=== PATIENT | female | born 1965 | race Caucasian/White ===

== ENCOUNTER → 2016-07-17 | Outpatient (CLI) | payer OTHER ==
--- OUTSIDE RECORDS SUMMARY | 2016-07-17 11:06 | XMS REPORT | Continuity of Care Document ---
Author Author [facility] Organization [facility] Address Unknown Phone Unavailable Care Team Providers Care Battalion Chief Name Role Phone Mario Yun PCP [phone] Source Comments Some departments are not documenting in the electronic medical record. If you do not see the information that you expected, contact Release of Information in the Health Information Management department at [phone] for further assistance in locating additional records.[facility] Active Allergies and Adverse Reactions No Known Allergies Current Medications No known medications Active Problems Problem Noted Date Cancer of the skin, basal cell 03/31/2009 History of malignant melanoma of skin 03/31/2009 Cervical cancer (HCC) 03/31/2009 Overview: DIAGNOSIS: Stage IA2 Adenocarcinoma of the cervix PRIOR THERAPY: Status post laparoscopic radical hysterectomy, pelvic/common iliac LND, washings on 04/28/09. On final pathology: no residual disease. All 25 LNs were negative for disease. CURRENT THERAPY: Observation. To follow up with Dr. Yun in 3 months. She will require an examination every 3 months for 2 years then q 4 months, then q 6 months for 2 years, then yearly. CT at the end of the first and second year, and PRN. Abnormal mammogram, unspecified 03/31/2009 Social History Tobacco Use Types Packs/Day Years Used Date Current Every Day Smoker Cigarettes 0.5 20 Alcohol Use Drinks/Week oz/Week Comments Yes 6 Cans of 72.0 beer Last Filed Vital Signs Vital Sign Reading Time Taken Blood Pressure 121/91 05/31/2009 11:23 AM DEPUTY CHIEF COUNSEL Pulse 91 05/31/2009 11:23 AM DEPUTY CHIEF COUNSEL Temperature 36.5 C (97.7 F) 09/06/2009 10:22 AM CDT Respiratory Rate - - Height 1.721 m (5' 7.75") 09/06/2009 10:22 AM CDT Weight 87.726 kg (193 lb 6.4 oz) 09/06/2009 10:22 AM CDT Body Mass Index 29.62 09/06/2009 10:22 AM CDT Oxygen Saturation 95% 04/30/2009 8:00 AM DEPUTY CHIEF COUNSEL Plan of Care Health Maintenance Due Date Last Done Comments Physical (Comprehensive) 1974 Exam Pertussis Vaccine 1978 Tetanus Vaccine 01/05/1984 Cervical Cancer Screening 01/05/1988 Breast Cancer Screening 2007 Influenza Vaccine 01/20/2016 Results from Last 3 Months Not on file
--- NOTE | 2016-07-19 20:08 | Diagnostic Imaging Report ---
Bilateral screening mammogram. The current study was also evaluated with a Computer Aided Detection (CAD) system. INDICATION: Screening. No current complaints stated on the questionnaire. COMPARISON: 07/08/2015. FINDINGS: The breasts are composed of heterogeneously dense parenchyma which may decrease mammographic sensitivity. There is a biopsy clip in the outer aspect of the left breast. Punctate calcifications are also seen. No mass, architectural distortion, or suspicious cluster of calcification noted. Allowing for technique and positional differences, no suspicious change is seen. IMPRESSION: No significant change. ACR BI-RADS Category 2: Benign findings. Result letter will be mailed to the patient. Note: At least 10% of breast cancer is not imaged by mammography. Dictated by: Dictated on workstation # [id number]
== END ==
LOC: RAD 11:03
PROVIDERS: ATTEND Internal Medicine
DX: Z12.31 Encounter for screening mammogram for malignant neoplasm of breast (principal)
CPT/HCPCS: 77067

== ENCOUNTER → 2017-07-02 | Outpatient (CLI) | payer OTHER ==
--- NOTE | 2017-07-02 19:30 | Diagnostic Imaging Report ---
INDICATION: Routine screening. Comparison is made with prior study from 07/17/2016. The current study was also evaluated with a Computer Aided Detection (CAD) system. Scattered fibroglandular densities are noted bilaterally. The overall parenchymal pattern appears to be stable. Intramammary lymph node upper outer right breast is stable. There is biopsy clip in the lateral left breast. Benign calcifications are present. No spiculated mass or malignant appearing microcalcifications are seen. The axillae are unremarkable. IMPRESSION: No mammographic features suspicious for malignancy are identified. ACR BI-RADS Category 2: Benign findings. Result letter will be mailed to the patient. Note: At least 10% of breast cancer is not imaged by mammography. Dictated by: Dictated on workstation # [id number]
== END ==
LOC: RAD 14:27
PROVIDERS: ATTEND Internal Medicine
DX: Z12.31 Encounter for screening mammogram for malignant neoplasm of breast (principal)
CPT/HCPCS: 77067

== ENCOUNTER → 2018-07-05 | Outpatient (CLI) | payer OTHER ==
--- NOTE | 2018-07-05 12:06 | Diagnostic Imaging Report ---
INDICATION: Routine screening. COMPARISON: 07/02/2017 and 07/17/2016. TECHNIQUE: 2D and 3D bilateral screening mammography was performed with CAD. FINDINGS: Scattered fibroglandular densities are identified bilaterally. The intraparenchymal lymph node in the upper outer right breast appears stable. A biopsy clip in the left breast is again seen. No new mass or malignant appearing microcalcifications are identified. The axillae are unremarkable. IMPRESSION: No mammographic features suspicious for malignancy are identified. ACR BI-RADS Category 2: Benign findings. Result letter will be mailed to the patient. Note: At least 10% of breast cancer is not imaged by mammography. Dictated by: Dictated on workstation # [id number]
== END ==
LOC: RAD 08:45
PROVIDERS: ATTEND Internal Medicine
DX: Z12.31 Encounter for screening mammogram for malignant neoplasm of breast (principal)
CPT/HCPCS: 77067

== ENCOUNTER 2019-07-07 05:38 | Outpatient (CLI) | payer OTHER ==
[~2019-07-07] VITALS: Ht 172 cm; Wt 94.0 kg
[2019-07-07] MEDS ORDERED: ETOD500T PO (14:05)
[2019-07-07] MEDS ORDERED: ALPR0.25 PO (14:05)
== END 2019-07-07 14:36 | disposition home or self-care (01) ==
LOC: PREOP 05:38
PROVIDERS: ATTEND Surgery
DX: Z01.818 Encounter for other preprocedural examination (principal)

== ENCOUNTER → 2019-07-07 | Outpatient (CLI) | payer OTHER ==
[~2019-07-07] MED LIST: ALPR0.25 PO; ETOD500T PO
--- NOTE | 2019-07-07 08:52 | Diagnostic Imaging Report ---
INDICATION: Screening. TECHNIQUE: The current study was also evaluated with a Computer Aided Detection (CAD) system. 3D Tomographic imaging was also performed. COMPARISON: 07/05/2018, 07/02/2017, and 07/17/2016. FINDINGS: There are scattered fibroglandular densities bilaterally. There are a few benign type calcifications. There is a surgical clip in the left breast. There is an unchanged benign-appearing nodular density in the lateral aspect of the right breast. There is no new dominant mass, spiculated lesion, or suspicious calcification identified. The skin, nipples, and axillae are unremarkable. IMPRESSION: Benign findings. ACR BI-RADS Category 2: Benign findings. Result letter will be mailed to the patient. Note: At least 10% of breast cancer is not imaged by mammography. Dictated by: Dictated on workstation # [id number]
== END ==
LOC: RAD 07:45
PROVIDERS: ATTEND Internal Medicine
DX: Z12.31 Encounter for screening mammogram for malignant neoplasm of breast (principal)
CPT/HCPCS: 77067

== ENCOUNTER 2019-07-14 09:09 | Day surgery (SDC) | payer OTHER ==
[~2019-07-14] VITALS: Ht 172 cm; Wt 94.0 kg
[2019-07-14] MEDS ORDERED: LACTATED RINGERS 1,000 ML IV ONE (09:16)
--- NOTE | 2019-07-14 09:21 | Progress Note-Pre Operative ---
Pre-Operative Progress Note H&P Reviewed The H&P was reviewed, patient examined and no changes noted. Time Seen by Provider: 09:19 Date H&P Reviewed: Jul 14, 2019 Time H&P Reviewed: 09:18 Pre-Operative Diagnosis: screening colonoscopy BHASKAR WIGGINS DO Jul 14, 2019 09:21
[2019-07-14 09:30] VITALS: BP 117/82
[2019-07-14] MEDS ORDERED: LACTATED RINGERS 1,000 ML IV STA (09:32)
[2019-07-14] MEDS ORDERED: PROPOFOL INJECTION 50 ML IV ONE (09:37)
[2019-07-14] MEDS ORDERED: MIDAZOLAM 2 MG/2 ML (VERSED) VIAL ONE (09:37)
[2019-07-14] MEDS ORDERED: GLYCOPYRROLATE 0.2 MG/ML (ROBINUL) 2 ML VIAL ONE (10:19)
[2019-07-14 10:35] VITALS: BP 113/65
[2019-07-14 10:40] VITALS: BP 114/68
--- NOTE | 2019-07-14 10:42 | Progress Note-Post Operative ---
Post-Operative Progess Note Surgeon (s)/Hris Specialist (s) Surgeon BHASKAR WIGGINS DO Hris Specialist: SENIA Vergara Pre-Operative Diagnosis screening colonoscopy Post-Operative Diagnosis Internal Hemorrhoids Procedure & Operative Findings Date of Procedure 07/14/19 Procedure Performed/Findings Colonoscopy Anesthesia Type IV sedation by MANUFACTURING WEAVER Estimated Blood Loss Estimated blood loss (mL): none Specimens/Packing Specimens Removed none BHASKAR WIGGISN DO Jul 14, 2019 10:42
--- NOTE | 2019-07-14 10:42 | Endoscopy Discharge Instruct ---
Endo Procedure/Findings Findings 1.: Internal Hemorrhoids Discharge Instructions - Activity: You might feel a little sleepy until tomorrow. This is due to the me dicine you received to relax you. Until tomorrow, you should: NOT drive a car, operate machinery or power tools. NOT drink any alcoholic beverages. NOT make any important decisions or sign importortant papers. Do not return to work until tomorrow, unless otherwise instructed. Resume previous activities tomorrow. Diet: Start by taking liquids. If you tolerate liquids, advance to solid food. make an appointment for one week 1.: Colonscopy in 10 years Notify Physician - If you experience excessive bleeding, unusual abdominal pain, fever, or chest pain, contact your doctor immediately. BHASKAR WIGGINS DO Jul 14, 2019 10:42
[2019-07-14 10:45] VITALS: BP 107/68
[2019-07-14 10:50] VITALS: BP 107/68
[2019-07-14 11:14] VITALS: BP 105/65
--- NOTE | 2019-07-14 13:47 | Anesthesia-General Post-Op ---
MAC Patient Condition Mental Status/LOC: Same as Preop Cardiovascular: Satisfactory Nausea/Vomiting: Absent Respiratory: Satisfactory Pain: Controlled Complications: Absent Post Op Complications Complications None Follow Up Care/Instructions Patient Instructions None needed. Anesthesiology Discharge Order Discharge Order Patient is doing well, no complaints, stable vital signs, no apparent adverse anesthesia problems. No complications reported per nursing. GINI RIVAS CRNA Jul 14, 2019 13:47
--- NOTE | 2019-07-14 19:43 | OPERATIVE REPORT ---
DATE OF SERVICE: 07/14/2019 PREOPERATIVE DIAGNOSIS: Screening colonoscopy. POSTOPERATIVE DIAGNOSIS: Internal hemorrhoids. PROCEDURE: Colonoscopy. SURGEON: Chris Lo DO DOMESTIC HOUSEKEEPER: Jayleen Tam MS3 ANESTHESIA: IV sedation by MOLDED FRAMES ASSEMBLER. SPECIMENS: None. BLOOD LOSS: None. FLUIDS: Per anesthesia. POSTOPERATIVE CONDITION: Stable. INDICATION FOR PROCEDURE: The patient is a 54-year-old female, who has not had a colonoscopy, needs one for screening. FINDINGS: The patient had some large internal hemorrhoids, probably grade I, almost grade II, but no other obvious pathology. PROCEDURE NOTE: After informed consent was obtained, the patient was brought to the endoscopy suite, placed in bed in left lateral decubitus position. She was administered IV sedation by the MOLDED FRAMES ASSEMBLER who then monitored her vitals the entire time, heart rate, blood pressure and pulse ox and the scope was inserted, pushed all the way to about 140 cm, able to get all the way to cecum, took a picture of appendiceal orifice, noted the ileocecal valve and then slowly withdrew the scope, insufflating to look circumferentially at the foley looking at the cecum, up the ascending colon to the hepatic flexure, down the transverse colon, the splenic flexure, into the descending colon down in the sigmoid and finally into the rectum, retroflexed in the rectal vault, saw some minimal internal hemorrhoids grade I to II, took a picture of these and then removed the scope. The patient tolerated the procedure. She was recovered in endoscopy suite. Job ID: [id number] DocumentID: [id number] Dictated Date: 07/14/2019 14:49:20 Four Slide Operator Date: 07/14/2019 19:42:51 Dictated By: CHRIS LO DO
== END 2019-07-14 11:20 | disposition home or self-care (01) ==
LOC: ENDO 09:09
PROVIDERS: ATTEND Surgery
DX: Z12.11 Encounter for screening for malignant neoplasm of colon (principal); K64.8 Other hemorrhoids; M19.90 Unspecified osteoarthritis, unspecified site; E66.9 Obesity, unspecified; F41.9 Anxiety disorder, unspecified; F17.210 Nicotine dependence, cigarettes, uncomplicated; Z68.31 Body mass index [BMI] 31.0-31.9, adult; Z90.710 Acquired absence of both cervix and uterus; Z79.899 Other long term (current) drug therapy; Z82.49 Family history of ischemic heart disease and other diseases of the circulatory system; Z83.3 Family history of diabetes mellitus

== ENCOUNTER → 2020-07-08 | Outpatient (CLI) | payer OTHER ==
--- NOTE | 2020-07-08 11:29 | Diagnostic Imaging Report ---
Indication: Routine screening. Comparison is made with prior mammogram 07/07/2019 and 07/05/2018. 2-D and 3-D bilateral screening mammography was performed with CAD. Scattered fibroglandular densities are identified bilaterally. A circumscribed benign nodular densities in the outer right breast posterior depth are stable. Marker clip lateral left breast is again noted from prior biopsy. Benign nodules in the lateral left breast are noted and appears stable. No spiculated mass or malignant appearing microcalcifications are seen. Axillae are unremarkable. IMPRESSION: BI-RADS Category 2 No mammographic features suspicious for malignancy are identified. ACR BI-RADS Category 2: Benign findings. Result letter will be mailed to the patient. Note: At least 10% of breast cancer is not imaged by mammography. Dictated by: Dictated on workstation # [id number]
== END ==
LOC: RAD 10:16
PROVIDERS: ATTEND Internal Medicine
DX: Z12.31 Encounter for screening mammogram for malignant neoplasm of breast (principal)
CPT/HCPCS: 77063; 77067

== ENCOUNTER → 2021-07-11 | Outpatient (CLI) | payer OTHER ==
[~2021-07-11] MED LIST changes: -ETOD500T PO; +ETOD500T3 PO
--- NOTE | 2021-07-11 14:51 | Diagnostic Imaging Report ---
Digital mammogram bilateral screening This study was compared to the prior exams of 07/08/2020, 07/07/2019, and 07/05/2018. At this time, there are no current complaints. The current study was also evaluated with a Computer Aided Detection (CAD) system. FINDINGS: There are scattered fibroglandular densities in both breasts which could obscure a lesion. Overall, there does not appear to have been any significant change when compared to the prior exam. No primary or secondary sign of malignancy is noted. IMPRESSION: There is no radiographic evidence for malignancy. ACR BI-RADS Category 1: Negative. Result letter will be mailed to the patient. Note: At least 10% of breast cancer is not imaged by mammography. Dictated by: Dictated on workstation # [id number]
== END ==
LOC: RAD 10:30
PROVIDERS: ATTEND Internal Medicine
DX: Z12.31 Encounter for screening mammogram for malignant neoplasm of breast (principal)
CPT/HCPCS: 77063; 77067

== ENCOUNTER 2021-08-16 17:36 | Observation (INO) | payer OTHER ==
[~2021-08-16] VITALS: Ht 175.2 cm; Wt 98.2 kg
[2021-08-16] MEDS ORDERED: PANTOPRAZOLE 40 MG (PROTONIX) VIAL IV ONE (18:00)
[2021-08-16] MEDS ORDERED: ONDANSETRON 4 MG/2 ML (SDV) Z0FRAN IVP ONE (18:00)
[2021-08-16] MEDS ORDERED: LACTATED RINGERS 1,000 ML IV ONE (18:00)
--- NOTE | 2021-08-16 18:07 | ED Abdominal Pain ---
General Stated Complaint: THROWING UP Source of Information: Patient History of Present Illness Date Seen by Provider: Aug 16, 2021 Time Seen by Provider: 17:54 Initial Comments PT ARRIVES VIA POV FROM HOME WITH PT AND BOTH EXTREMELY ANXIOUS C/O EPIGASTRIC PAIN --GOES ALL ACROSS UPPER ABDOMEN AND AROUND TO BACK, ALSO RADIATES TO RIGHT SHOULDER/SCAPULA AND RIGHT LATERAL NECK STATES SHE BEGAN HAVING MID /LOWER BACK PAIN LAST PM/EARLY THIS AM HAS HAD NAUSEA AND VOMITED X 4 TODAY--"CAN'T KEEP ANYTHING DOWN"--HAS BEEN DRINKING WATER ALL DAY "BUT IT WON'T STAY DOWN" HAD "A LITTLE BIT" OF DIARRHEA YESTERDAY AM, NONE SINCE NO FEVER PT IS URINATING A NORMAL AMOUNT AND NO URINARY SYMPTOMS CALLED DR. CARRASCO'S OFFICE TODAY, RX CALLED IN FOR ZOFRAN--PICKED IT UP FROM PHARMACY, TOOK 1 AND THEN CAME STRAIGHT HERE NO HISTORY OF SIMILAR PT HAD CERVICAL CANCER 12 YEARS AGO AND HAD RADICAL HYSTERECTOMY AND PART OF BLADDER REMOVED. HAD PRIOR BTL NO OTHER ABDOMINAL SURGERIES NO GI PROBLEMS STARTED ON WELLBUTRIN A COUPLE OF WEEKS AGO TO HELP STOP SMOKING PT HAD COVID THE END OF APRIL HAS HAD COVID-19 VACCINES X 2, NO BOOSTER, SHE GOT COVID INFECTION AROUND THE TIME SHE WAS DUE FOR HER BOOSTER. IS DUE FOR BOOSTER NOW. PCP: DR. CARRASCO Allergies and Home Medications Allergies Coded Allergies: No Known Drug Allergies (Unverified , 07/07/19) Patient Home Medication List Home Medication List Reviewed: Yes Alprazolam (Xanax) 0.25 Mg Tablet, 0.25 MG PO PRN, (Reported) Entered as Reported by: ARGENTINA NIXON on 07/07/19 1405 Etodolac (Etodolac) 500 Mg Tablet, 500 MG PO PRN, (Reported) Entered as Reported by: ARGENTINA NIXON on 07/07/19 1405 Review of Systems Review of Systems Constitutional: no symptoms reported Respiratory: No Symptoms Reported Cardiovascular: No Symptoms Reported Gastrointestinal: See HPI, Abdominal Pain, Diarrhea, Nausea, Vomiting Genitourinary: No Symptoms Reported Musculoskeletal: see HPI, back pain Skin: no symptoms reported Psychiatric/Neurological: No Symptoms Reported Endocrine: No Symptoms Reported Hematologic/Lymphatic: No Symptoms Reported Past Zndzlor-Imtumj-Wuznwz Hx Patient Social History Tobacco Use?: Yes (<1 PPD) Tobacco type used: Cigarettes Smoking Status: Current Everyday Smoker Substance use?: No Alcohol Use?: Yes Alcohol Frequency: Once in a while Seasonal Allergies Seasonal Allergies: No Past Medical History Surgery/Hospitalization HX: SCREENING COLONOSCOPY [address] 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 MECHANIC History: Hysterectomy Sexually Transmitted Disease: No HIV/AIDS: No Genitourinary: Yes (PART OF BLADDER REMOVED DURING CERVICAL CANCER SURGERY) Gastrointestinal: Yes Chronic Constipation Musculoskeletal: No Endocrine: No HEENT: No Cancer: Yes Cervical Did You Recieve Any Treatments: Yes What Type of Treatment Did You: Radiation, Surgical Intervention RADICAL HYSTERECTOMY/BSO/PART OF BLADDER REMOVED Psychosocial: Yes Anxiety Integumentary: No Blood Disorders: No Adverse Reaction/Blood Tranf: No (N/A) Physical Exam Vital Signs Vital Signs - First Documented 08/16/21 17:50 Temp 36.5 Pulse 100 Resp 18 B/P (MAP) 134/110 (118) Capillary Refill : Height/Weight/BMI Height: '" Weight: lbs. oz. kg; 31.77 BMI Method: General Appearance: WD/WN, other (VERY ANXIOUS, HYPERVENTILATING, TALKING NON- STOP IN FULL SENTENCES) Respiratory: normal breath sounds, no respiratory distress, no accessory muscle use Cardiovascular: regular rate, rhythm, no murmur Gastrointestinal: normal bowel sounds, soft, no organomegaly, no pulsatile mass; No distended, No guarding, No rebound; tenderness (DIFFUSE UPPER ABDOMINAL TENDERNESS); No hernia, No mass Extremities: normal inspection, normal capillary refill Back: other (DIFFUSE MID AND LOWER BACK TENDERNESS AND BILATERAL FLANK TENDERNESS) Neurologic/Psychiatric: tower operator II-XII nml as tested, no motor/sensory deficits, alert, oriented x 3 Skin: normal color, warm/dry; No rash Progress/Results/Core Measures Results/Orders Lab Results Laboratory Tests Test 08/16/21 18:00 08/16/21 18:13 Range/Units White Blood Count 10.8 4.3-11.0 10^3/uL Red Blood Count 4.66 3.80-5.11 10^6/uL Hemoglobin 15.0 11.5-16.0 g/dL Hematocrit 44 35-52 % Mean Corpuscular Volume 95 80-99 fL Mean Corpuscular Hemoglobin 32 25-34 pg Mean Corpuscular Hemoglobin Concent 34 32-36 g/dL Red Cell Distribution Width 12.5 10.0-14.5 % Platelet Count 350 130-400 10^3/uL Mean Platelet Volume 9.0 9.0-12.2 fL Immature Granulocyte % (Auto) 0 % Neutrophils (%) (Auto) 81 H 42-75 % Lymphocytes (%) (Auto) 14 12-44 % Monocytes (%) (Auto) 4 0-12 % Eosinophils (%) (Auto) 0 0-10 % Basophils (%) (Auto) 0 0-10 % Neutrophils # (Auto) 8.8 H 1.8-7.8 10^3/uL Lymphocytes # (Auto) 1.5 1.0-4.0 10^3/uL Monocytes # (Auto) 0.4 0.0-1.0 10^3/uL Eosinophils # (Auto) 0.0 0.0-0.3 10^3/uL Basophils # (Auto) 0.0 0.0-0.1 10^3/uL Immature Granulocyte # (Auto) 0.0 0.0-0.1 10^3/uL Sodium Level 144 135-145 MMOL/L Potassium Level 3.5 L 3.6-5.0 MMOL/L Chloride Level 104 98-107 MMOL/L Carbon Dioxide Level 20 L 21-32 MMOL/L Anion Gap 20 H 5-14 MMOL/L Blood Urea Nitrogen 16 7-18 MG/DL Creatinine 0.90 0.60-1.30 MG/DL Estimat Glomerular Filtration Rate 76 BUN/Creatinine Ratio 18 Glucose Level 138 H 70-105 MG/DL Calcium Level 10.0 8.5-10.1 MG/DL Corrected Calcium 8.5-10.1 MG/DL Magnesium Level 1.9 1.6-2.4 MG/DL Total Bilirubin 0.8 0.1-1.0 MG/DL Aspartate Amino Transf (AST/SGOT) 15 5-34 U/L Alanine Aminotransferase (ALT/SGPT) 19 0-55 U/L Alkaline Phosphatase 88 40-136 U/L Troponin I < 0.028 <0.028 NG/ML Total Protein 8.4 H 6.4-8.2 GM/DL Albumin 4.7 H 3.2-4.5 GM/DL Amylase Level 30 25-125 U/L Lipase 15 8-78 U/L Urine Color YELLOW Urine Clarity CLEAR Urine pH >=9.0 5-9 Urine Specific [place] 1.010 L 1.016-1.022 Urine Protein 1+ H NEGATIVE Urine Glucose (UA) NEGATIVE NEGATIVE Urine Ketones TRACE H NEGATIVE Urine Nitrite NEGATIVE NEGATIVE Urine Bilirubin NEGATIVE NEGATIVE Urine Urobilinogen 0.2 < = 1.0 MG/DL Urine Leukocyte Esterase NEGATIVE NEGATIVE Urine RBC (Auto) NEGATIVE NEGATIVE Urine RBC NONE /HPF Urine WBC NONE /HPF Urine Squamous Epithelial Cells 0-2 /HPF Urine Crystals PRESENT H /LPF Urine Amorphous Sediment FEW LALY PHOSPHATE H /LPF Urine Bacteria NEGATIVE /HPF Urine Casts NONE /LPF Urine Mucus NEGATIVE /LPF Urine Culture Indicated NO My Orders Orders - LINDA AVINA DO Ed Iv/Invasive Line Start (08/16/21 17:59) Monitor-Rhythm Ecg Trace Only (08/16/21 17:59) Amylase (08/16/21 17:59) Cbc With Automated Diff (08/16/21 17:59) Comprehensive Metabolic Panel (08/16/21 17:59) Lipase (08/16/21 17:59) Magnesium (08/16/21 17:59) Ua Culture If Indicated (08/16/21 17:59) Troponin I [place] (08/16/21 17:59) Ed Iv/Invasive Line Start (08/16/21 17:59) Lactated Ringers (Lr 1000 Ml Iv Solution (08/16/21 18:00) Ondansetron Injection (Zofran Injectio (08/16/21 18:00) Ekg Tracing (08/16/21 17:59) Pantoprazole Injection (Protonix Injecti (08/16/21 18:00) Ct Chest/Abdomen/Pelvis W (08/16/21 19:13) Iohexol Injection (Omnipaque 350 Mg/Ml 1 (08/16/21 19:30) Ns (Ivpb) (Sodium Chloride 0.9% Ivpb Bag (08/16/21 19:30) Fentanyl Inj (Sublimaze Injection) (08/16/21 19:55) Ed Admission (Communication) (08/16/21 19:57) Medications Given in ED Current Medications Medications Dose Ordered Sig/Jeri Route Start Time Stop Time Status Last Admin Dose Admin Iohexol 100 ml ONCE ONCE IV 08/16/21 19:30 08/16/21 19:31 DC 08/16/21 19:29 100 ML Lactated Ringer's 1,000 ml @ 0 mls/hr Q0M ONCE IV 08/16/21 18:00 08/16/21 18:02 DC 08/16/21 18:15 999 MLS/HR Ondansetron HCl 4 mg ONCE ONCE IVP 08/16/21 18:00 08/16/21 18:02 DC 08/16/21 18:15 4 MG Pantoprazole 40 mg ONCE ONCE IV 08/16/21 18:00 08/16/21 18:02 DC 08/16/21 18:15 40 MG Sodium Chloride 100 ml ONCE ONCE IV 08/16/21 19:30 08/16/21 19:31 DC 08/16/21 19:29 80 ML Vital Signs/I&O 08/16/21 08/16/21 17:50 18:00 Temp 36.5 Pulse 100 Resp 18 B/P (MAP) 134/110 (118) 138/87 08/16/21 23:59 Intake Total 1000 ml Balance 1000 ml Progress Progress Note : Progress Note GIVEN IV FLUIDS, ZOFRAN AND PROTONIX WITH MUCH IMPROVEMENT IN NAUSEA AND ABDOMINAL DISCOMFORT, STILL HAVING BACK PAIN AND SOME UPPER ABDOMINAL PAIN, FENTANYL ORDERED. NO DETERIORATION IN PT'S CONDITION DURING ER STAY Initial ECG Impression Date: Aug 16, 2021 Initial ECG Impression Time: 18:09 Initial ECG Rate: 65 Initial ECG Rhythm: Normal Sinus Diagnostic Imaging Comments CT CHEST/ABDOMEN/PELVIS--PER RADIOLOGIST REPORT AT 1945 FINDINGS: CT CHEST: The heart size is within normal limits. No pericardial effusion is present. There is no mediastinal, hilar, or axillary lymphadenopathy. The lungs demonstrate no pulmonary nodules or masses. There are no focal areas of consolidation. No central endobronchial obstructing lesions are identified. There are no pleural effusions or pneumothorax. The osseous structures demonstrate no acute abnormalities. CT ABDOMEN AND PELVIS: Stable hemangioma in the right hepatic lobe. Additional smaller hemangiomas and cysts are seen. No suspicious focal hepatic lesions. The portal vein is patent. The gallbladder is decompressed. The spleen, pancreas, adrenal glands, and kidneys have a normal appearance. There is no pathologically enlarged mesenteric or retroperitoneal adenopathy. There is wall thickening and edema of the distal stomach. The bowel loops are nondilated. The appendix is visualized in the right lower quadrant and has a normal appearance. There is no free fluid or free air. The osseous structures demonstrate no acute abnormalities. There is calcified aortic and iliac atherosclerotic plaque without aneurysm. Ureters and bladder have a normal appearance. There is no free air, loculated collection, or adenopathy in the pelvis. IMPRESSION: 1. Wall thickening and edema involving the distal stomach, suggestive of gastritis. No penetrating ulcer is seen. No free fluid or free air. 2. No acute abnormalities in the chest. No focal consolidation or pleural effusion. Reviewed: Reviewed by Me Departure Communication (Admissions) 1946--SPOKE WITH DR. CARRASCO, ACCEPTS PT FOR ADMIT. SHE WILL PUT IN ADMIT ORDERS. WILL CONSULT DR. WIGGINS 1951--SPOKE WITH DR. WIGGINS FOR SURGICAL CONSULT Impression Primary Impression: Gastritis Additional Impressions: Abdominal pain CONTRACTED GALLBLADDER Disposition: HOME, SELF-CARE Condition: Improved Admissions Decision to Admit Reason: Admit from ER (General) Decision to Admit/Date: Aug 16, 2021 Time/Decision to Admit Time: 19:50 Departure-Patient Inst. Decision time for Depature: 19:45 Referrals: CHRISTIANO CARRASCO DO (PCP/Family) Primary Care Physician Patient Instructions: Gastritis ED Add. Discharge Instructions: CLEAR LIQUIDS, SIPS AT A TIME--WATER, BROTH, JELLO, GATORADE TOMORROW IF YOU ARE BETTER, ADD BRATS DIET TO CLEAR LIQUIDS--BANANAS, RICE, APPLESAUCE, TOAST, SALTINES. TAKE ZOFRAN EVERY 4 HOURS NEEDED FOR NAUSEA FOLLOW UP WITH LINDA BOONE DO Aug 16, 2021 18:07
[2021-08-16 18:11] LABS: BASOPHILS % (AUTO) 0 % (0-10); EOSINOPHILS % (AUTO) 0 % (0-10); HEMATOCRIT 44 % (35-52); LYMPHOCYTES # (AUTO) 1.5 10^3/uL (1.0-4.0); LYMPHOCYTES % (AUTO) 14 % (12-44); MEAN CORPUSCULAR HEMOGLOBIN 32 pg (25-34); MEAN CORPUSCULAR HGB CONC 34 g/dL (32-36); MEAN CORPUSCULAR VOLUME 95 fL (80-99); MONOCYTES # (AUTO) 0.4 10^3/uL (0.0-1.0); MONOCYTES % (AUTO) 4 % (0-12); NEUTROPHILS # (AUTO) 8.8 10^3/uL (1.8-7.8); NEUTROPHILS % (AUTO) 81 % (42-75); PLATELET COUNT 350 10^3/uL (130-400); WHITE BLOOD COUNT 10.8 10^3/uL (4.3-11.0)
[2021-08-16 18:19] LABS: BILIRUBIN,URINE NEGATIVE (NEGATIVE); CLARITY,URINE CLEAR; COLOR,URINE YELLOW; GLUCOSE, URINE (UA) NEGATIVE (NEGATIVE); KETONES,URINE TRACE (NEGATIVE); LEUKOCYTE ESTERASE ,URINE NEGATIVE (NEGATIVE); NITRITE,URINE NEGATIVE (NEGATIVE); PH,URINE >=9.0 (5-9); PROTEIN,URINE 1+ (NEGATIVE)
[2021-08-16 18:25] LABS: BACTERIA,URINE NEGATIVE /HPF; SQUAMOUS EPITHELIAL CELL,UR 0-2 /HPF
[2021-08-16 18:25] LABS: ALBUMIN 4.7 GM/DL (3.2-4.5); CHLORIDE 104 MMOL/L (98-107); POTASSIUM 3.5 MMOL/L (3.6-5.0); SODIUM 144 MMOL/L (135-145)
[2021-08-16 18:26] LABS: AMORPHOUS SEDIMENT,UR FEW AMOR PHOSPHATE /LPF
[2021-08-16 18:26] LABS: AMYLASE 30 U/L (25-125)
[2021-08-16 18:27] LABS: GLUCOSE 138 MG/DL (70-105); TOTAL PROTEIN 8.4 GM/DL (6.4-8.2)
[2021-08-16 18:28] LABS: CARBON DIOXIDE 20 MMOL/L (21-32)
[2021-08-16 18:29] LABS: BILIRUBIN,TOTAL 0.8 MG/DL (0.1-1.0)
[2021-08-16 18:31] LABS: ALKALINE PHOSPHATASE 88 U/L (40-136); GFR ESTIMATED 76
[2021-08-16 18:32] LABS: BUN/CREATININE RATIO 18
[2021-08-16 18:34] LABS: ALANINE AMINOTRANSFERASE 19 U/L (0-55); MAGNESIUM 1.9 MG/DL (1.6-2.4)
[2021-08-16 18:36] LABS: LIPASE 15 U/L (8-78)
[2021-08-16] MEDS ORDERED: IOHEXOL 350 MG/ML 100 ML (OMNIPAQUE 350) VIAL IV ONE (19:30)
[2021-08-16] MEDS ORDERED: NS 100 ML (IVPB) BAG IV ONE (19:30)
--- NOTE | 2021-08-16 19:41 | Diagnostic Imaging Report ---
EXAMINATION: CT chest, abdomen and pelvis with intravenous contrast. TECHNIQUE: Multiple contiguous axial images were obtained through the chest, abdomen and pelvis after the uneventful administration of intravenous contrast. All CT scans use one or more of the following dose optimizing techniques: automated exposure control, MA and/or KvP adjustment based on patient size and exam type or iterative reconstruction. HISTORY: Chest and abdominal pain. Vomiting. COMPARISON: 05/29/2011. FINDINGS: CT CHEST: The heart size is within normal limits. No pericardial effusion is present. There is no mediastinal, hilar, or axillary lymphadenopathy. The lungs demonstrate no pulmonary nodules or masses. There are no focal areas of consolidation. No central endobronchial obstructing lesions are identified. There are no pleural effusions or pneumothorax. The osseous structures demonstrate no acute abnormalities. CT ABDOMEN AND PELVIS: Stable hemangioma in the right hepatic lobe. Additional smaller hemangiomas and cysts are seen. No suspicious focal hepatic lesions. The portal vein is patent. The gallbladder is decompressed. The spleen, pancreas, adrenal glands, and kidneys have a normal appearance. There is no pathologically enlarged mesenteric or retroperitoneal adenopathy. There is wall thickening and edema of the distal stomach. The bowel loops are nondilated. The appendix is visualized in the right lower quadrant and has a normal appearance. There is no free fluid or free air. The osseous structures demonstrate no acute abnormalities. There is calcified aortic and iliac atherosclerotic plaque without aneurysm. Ureters and bladder have a normal appearance. There is no free air, loculated collection, or adenopathy in the pelvis. IMPRESSION: 1. Wall thickening and edema involving the distal stomach, suggestive of gastritis. No penetrating ulcer is seen. No free fluid or free air. 2. No acute abnormalities in the chest. No focal consolidation or pleural effusion. Dictated by: Dictated on workstation # [id number]
[2021-08-16] MEDS ORDERED: fentaNYL INJ 100 MCG/2 ML AMP IVP STA (19:55)
[2021-08-16 20:25] VITALS: BP 127/82
[2021-08-16] MEDS ORDERED: diphenhydrAMINE 25 MG TAB (BENADRYL) PO PRN (20:45)
[2021-08-16] MEDS ORDERED: ONDANSETRON 4 MG/2 ML (SDV) Z0FRAN IV PRN (20:45)
[2021-08-16] MEDS ORDERED: diphenhydrAMINE 50 MG/ML INJ (BENADRYL) IVP PRN (20:45)
[2021-08-16] MEDS ORDERED: morphine INJ 4 MG/ML 1 ML (VIAL/SYRINGE) IV PRN (20:45)
[2021-08-16] MEDS ORDERED: LACTULOSE SYRUP 10GM/15ML (ENULOSE) 30ML UDC PO PRN (20:45)
[2021-08-16] MEDS ORDERED: MELATONIN 3 MG TABLET PO PRN (20:45)
[2021-08-16] MEDS ORDERED: CALCIUM CARBONATE 500 MG (TUMS) TAB.CHEW PO PRN (20:45)
[2021-08-16] MEDS ORDERED: ANTACID SUSP 30 ML UDC (MYLANTA) PO PRN (20:45)
[2021-08-16] MEDS ORDERED: ALPRAZolam 0.25 MG (XANAX) TAB PO PRN (20:45)
[2021-08-16] MEDS ORDERED: ONDANSETRON 4 MG (ZOFRAN) ORAL DISSOLVE TAB PO PRN (20:45)
[2021-08-16] MEDS ORDERED: MILK OF MAGNESIA 400 MG/5 ML 30 ML UDC PO PRN (20:45)
[2021-08-16] MEDS ORDERED: BISACODYL 10 MG SUPP (DULCOLAX) PR PRN (20:45)
[2021-08-16] MEDS ORDERED: ACETAMINOPHEN 325 MG TABLET PO PRN (20:45)
[2021-08-16] MEDS ORDERED: polyethylene glycoL POWDER 17 GM (MIRALAX) PACK PO PRN (20:45)
[2021-08-16] MEDS ORDERED: NS W/KCL 20 MEQ/L 1,000 ML IV ONE (21:32)
[2021-08-16] MEDS: NS W/KCL 20 MEQ/L 1,000 ML IV SCH (21:35)
[2021-08-16] MEDS ORDERED: POTASSIUM CHLORIDE INJ 10 MEQ in NS IV 1000 ML 1,000 ML IV SCH (22:00)
[2021-08-16] MEDS: KETOROLAC 15 MG/ML VIAL IV SCH (23:08)
[2021-08-16] MEDS: SUCRALFATE 1 GM (CARAFATE) TAB PO SCH (23:09)
[2021-08-16] MEDS: DOCUSATE SODIUM 100 MG (COLACE) CAP PO SCH (23:12)
[2021-08-16] MEDS: SENNOSIDES 8.6 MG (SENOKOT) TAB PO SCH (23:13)
[2021-08-17] VITALS (7 sets, daily range): BP systolic 107–139; BP diastolic 58–84
[2021-08-17 05:36] LABS: BASOPHILS # (AUTO) 0.1 10^3/uL (0.0-0.1); BASOPHILS % (AUTO) 1 % (0-10); EOSINOPHILS # (AUTO) 0.1 10^3/uL (0.0-0.3); EOSINOPHILS % (AUTO) 1 % (0-10); HEMATOCRIT 38 % (35-52); HEMOGLOBIN 12.3 g/dL (11.5-16.0); LYMPHOCYTES # (AUTO) 2.9 10^3/uL (1.0-4.0); LYMPHOCYTES % (AUTO) 38 % (12-44); MEAN CORPUSCULAR HEMOGLOBIN 32 pg (25-34); MEAN CORPUSCULAR HGB CONC 33 g/dL (32-36); MEAN CORPUSCULAR VOLUME 98 fL (80-99); MONOCYTES # (AUTO) 0.6 10^3/uL (0.0-1.0); MONOCYTES % (AUTO) 8 % (0-12); NEUTROPHILS # (AUTO) 3.9 10^3/uL (1.8-7.8); NEUTROPHILS % (AUTO) 52 % (42-75); PLATELET COUNT 256 10^3/uL (130-400); WHITE BLOOD COUNT 7.6 10^3/uL (4.3-11.0)
[2021-08-17] MEDS: SUCRALFATE 1 GM (CARAFATE) TAB PO SCH ×2 (05:54→11:42)
[2021-08-17 05:55] LABS: ALBUMIN 3.5 GM/DL (3.2-4.5); POTASSIUM 3.9 MMOL/L (3.6-5.0)
[2021-08-17 05:57] LABS: CALCIUM 8.8 MG/DL (8.5-10.1)
[2021-08-17 05:58] LABS: TOTAL PROTEIN 6.2 GM/DL (6.4-8.2)
[2021-08-17 06:00] LABS: BILIRUBIN,TOTAL 0.7 MG/DL (0.1-1.0)
[2021-08-17 06:01] LABS: CREATININE SERUM 0.79 MG/DL (0.60-1.30)
[2021-08-17] MEDS: NS W/KCL 20 MEQ/L 1,000 ML IV SCH (06:13)
[2021-08-17] MEDS: KETOROLAC 15 MG/ML VIAL IV SCH ×2 (06:13→14:57)
--- NOTE | 2021-08-17 07:18 | Consultation - Surgery ---
LAVON NOVAK 08/17/21 0718: History of Present Illness History of Present Illness Patient Consulted On(ta/time) 08/17/21 07:13 Date Seen by Provider: Aug 17, 2021 Time Seen by Provider: 07:00 Reason for Visit: N/V; Abdominal Pain History of Present Illness Consult requested by Dr. Boston for gastritis, possible cholecystitis. Pt is 56 year old female with hx of cervical cancer and anxiety. The patient first noticed her back began hurting Sunday night. When she woke up Sunday, it had radiated into her epigastric region, neck, and R shoulder. It was 9/10 pain at its worst. Pepto and tylenol did not help. Drinking water made it worse. The pt also reports slight diarrhea Sunday, though she hasn't had it since. There was no blood in her stool; it was brown. The patient became very nauseous and began vomiting Sunday. She vomited at least 4 times that day. The emesis was yellow with no blood. She also reports acid reflux in between the emesis, which she states she has never had before. The ER cleared her of possible cardiac involvement (EKG showed sinus rhythm). CT showed wall thickening and edema of the distal stomach, indicating possible gastritis. Her bowel was nondilated, her appendix normal, her GB decompressed, and no free fluid or air was seen. Pt is in no pain currently. She last threw up overnight. Her only recent medical intervention was removal of an infected cyst on her R arm last month, which she took abx for. Denies CP, SOB, palpitations, fever, and chills at this time. Her last colonoscopy was in [address] Wiggins. No polyps were found. She has never had an EGD. Allergies and Home Medications Allergies Coded Allergies: No Known Drug Allergies (Unverified , 07/07/19) Patient Home Medication List Alprazolam (Xanax) 0.25 Mg Tablet, 0.25 MG PO TID PRN for ANXIETY, (Reported) Entered as Reported by: ARGENTINA NIXON on 07/07/19 5020 Last Action: Held Bupropion HCl (Wellbutrin Xl) 150 Mg Tab.er.24h, 150 MG PO 1200 PRN for SMOKING CESSATION, (Reported) Entered as Reported by: TOMMY DOHERTY on 08/17/21 0942 Last Action: Reviewed Discontinued Medications Etodolac (Etodolac) 500 Mg Tablet, 500 MG PO PRN, (Reported) Discontinued Reason: No Longer Taking Entered as Reported by: ARGENTINA NIXON on 07/07/19 1405 Last Action: Discontinued Past Fvjkgew-Kcolaf-Eqqdfn Hx Patient Social History Smoking Status: Current Everyday Smoker (off and on for 40 years; 1/2 pack per day) Type Used: Cigarettes 2nd Hand Smoke Exposure: No Recent Hopitalizations: No Alcohol Use?: Yes (occasional (every few weeks have beer)) Have you traveled recently?: No Seasonal Allergies Seasonal Allergies: No Surgeries History of Surgeries: Yes (R KNEE SCOPE;RADICAL HYST/BSO/BLADDER RESECTION AROUND 1999) Surgeries: Bladder Surgery, Section, Hysterectomy, Oophorectomy, Orthopedic (R knee) Respiratory History of Respiratory Disorde: No Cardiovascular History of Cardiac Disorders: No Neurological History of Neurological Disord: No Reproductive System Hx Reproductive Disorders: Yes (CERVICAL CANCER) Sexually Transmitted Disease: No HIV/AIDS: No 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 Genitourinary History of Genitourinary Disor: Yes (PART OF BLADDER/ureter REMOVED DURING CERVICAL CANCER SURGERY) Gastrointestinal History of Gastrointestinal Di: Yes Gastrointestinal Disorders: Chronic Constipation Musculoskeletal History of Musculoskeletal Dis: No Endocrine History of Endocrine Disorders: No HEENT History of HEENT Disorders: No Cancer History of Cancer: Yes Cancer: Cervical Psychosocial History of Psychiatric Problem: Yes Behavioral Health Disorders: Anxiety, Depression Integumentary History of Skin or Integumenta: No Blood Transfusions History of Blood Disorders: No Adverse Reaction to a Blood Tr: No (N/A) Family Medical History Significant Family History: Cancer (grandma- brain), Diabetes (dad), Stroke (dad; brother), Other Conditions/Hx (Kidney stones dad) Review of Systems-General Constitutional: No chills; dizziness (yesterday; not today); No fever, No weight gain, No weight loss EENTM: blurred vision (yesterday; not today); No hearing loss Respiratory: No cough, No short of breath Cardiovascular: No chest pain, No Hx of Intervention, No palpitations Gastrointestinal: abdominal pain (epigastric), diarrhea (sunday morning); No hematemesis; nausea, vomiting (overnight; 4-5x total) Genitourinary: No dysuria, No frequency, No hematuria Musculoskeletal: back pain (where pain started), neck pain (pain radiates here), other (ribs hurt too) Skin: No lesions, No rash Psychiatric/Neurological: Anxiety, Depressed; Denies Headache, Denies Seizure Physical Exam-General Problems Physical Exam Vital Signs Vital Signs - First Documented 08/16/21 08/16/21 08/16/21 17:50 20:08 23:47 Temp 36.5 Pulse 100 Resp 18 B/P (MAP) 134/110 (118) Pulse Ox 97 O2 Delivery Room Air FiO2 21 Capillary Refill : Less Than 3 Seconds Eyes: Bilateral Eye PERRL, Bilateral Eye EOMI HEENT: PERRL/EOMI; No photophobia Neck: supple, normal inspection Respiratory: lungs clear, normal breath sounds, no respiratory distress Cardiovascular: regular rate, rhythm, no murmur Peripheral Pulses: 2+ Radial Pulses (R), 2+ Radial Pulses (L) Gastrointestinal: soft; No guarding, No rebound; tenderness (epigastric) Extremities: normal inspection; No no pedal edema Neurologic/Psychiatric: alert, normal mood/affect, oriented x 3 Skin: normal color, warm/dry Data Review Labs Laboratory Tests 08/16/21 18:00: White Blood Count 10.8, Red Blood Count 4.66, Hemoglobin 15.0, Hematocrit 44, Mean Corpuscular Volume 95, Mean Corpuscular Hemoglobin 32, Mean Corpuscular Hemoglobin Concent 34, Red Cell Distribution Width 12.5, Platelet Count 350, Mean Platelet Volume 9.0, Immature Granulocyte % (Auto) 0, Neutrophils (%) (Auto) 81H, Lymphocytes (%) (Auto) 14, Monocytes (%) (Auto) 4, Eosinophils (%) (Auto) 0, Basophils (%) (Auto) 0, Neutrophils # (Auto) 8.8H, Lymphocytes # (Auto) 1.5, Monocytes # (Auto) 0.4, Eosinophils # (Auto) 0.0, Basophils # (Auto) 0.0, Immature Granulocyte # (Auto) 0.0, Sodium Level 144, Potassium Level 3.5L, Chloride Level 104, Carbon Dioxide Level 20L, Anion Gap 20H, Blood Urea Nitrogen 16, Creatinine 0.90, Estimat Glomerular Filtration Rate 76, BUN/Creatinine Ratio 18, Glucose Level 138H, Calcium Level 10.0, Corrected Calcium , Magnesium Level 1.9, Total Bilirubin 0.8, Aspartate Amino Transf (AST/SGOT) 15, Alanine Aminotransferase (ALT/SGPT) 19, Alkaline Phosphatase 88, Troponin I < 0.028, Total Protein 8.4H, Albumin 4.7H, Amylase Level 30, Lipase 15 08/16/21 18:13: Urine Color YELLOW, Urine Clarity CLEAR, Urine pH >=9.0, Urine Specific [place] 1.010L, Urine Protein 1+H, Urine Glucose (UA) NEGATIVE, Urine Ketones TRACEH, Urine Nitrite NEGATIVE, Urine Bilirubin NEGATIVE, Urine Urobilinogen 0.2, Urine Leukocyte Esterase NEGATIVE, Urine RBC (Auto) NEGATIVE, Urine RBC NONE, Urine WBC NONE, Urine Squamous Epithelial Cells 0-2, Urine Crystals PRESENTH, Urine Amorphous Sediment FEW LALY PHOSPHATEH, Urine Bacteria NEGATIVE, Urine Casts NONE, Urine Mucus NEGATIVE, Urine Culture Indicated NO 08/17/21 05:26: White Blood Count 7.6, Red Blood Count 3.81, Hemoglobin 12.3, Hematocrit 38, Mean Corpuscular Volume 98, Mean Corpuscular Hemoglobin 32, Mean Corpuscular Hemoglobin Concent 33, Red Cell Distribution Width 12.6, Platelet Count 256, Mean Platelet Volume 9.0, Immature Granulocyte % (Auto) 0, Neutrophils (%) (Auto) 52, Lymphocytes (%) (Auto) 38, Monocytes (%) (Auto) 8, Eosinophils (%) (Auto) 1, Basophils (%) (Auto) 1, Neutrophils # (Auto) 3.9, Lymphocytes # (Auto) 2.9, Monocytes # (Auto) 0.6, Eosinophils # (Auto) 0.1, Basophils # (Auto) 0.1, Immature Granulocyte # (Auto) 0.0, Sodium Level 143, Potassium Level 3.9, Chloride Level 108H, Carbon Dioxide Level 21, Anion Gap 14, Blood Urea Nitrogen 14, Creatinine 0.79, Estimat Glomerular Filtration Rate 89, BUN/Creatinine Ratio 18, Glucose Level 89, Calcium Level 8.8, Corrected Calcium 9.2, Total Bilirubin 0.7, Aspartate Amino Transf (AST/SGOT) 13, Alanine Aminotransferase (ALT/SGPT) 13, Alkaline Phosphatase 64, Total Protein 6.2L, Albumin 3.[address] CHEST/ABDOMEN/PELVIS W EXAMINATION: CT chest, abdomen and pelvis with intravenous contrast. TECHNIQUE: Multiple contiguous axial images were obtained through the chest, abdomen and pelvis after the uneventful administration of intravenous contrast. All CT scans use one or more of the following dose optimizing techniques: automated exposure control, MA and/or KvP adjustment based on patient size and exam type or iterative reconstruction. HISTORY: Chest and abdominal pain. Vomiting. COMPARISON: 05/29/2011. FINDINGS: CT CHEST: The heart size is within normal limits. No pericardial effusion is present. There is no mediastinal, hilar, or axillary lymphadenopathy. The lungs demonstrate no pulmonary nodules or masses. There are no focal areas of consolidation. No central endobronchial obstructing lesions are identified. There are no pleural effusions or pneumothorax. The osseous structures demonstrate no acute abnormalities. CT ABDOMEN AND PELVIS: Stable hemangioma in the right hepatic lobe. Additional smaller hemangiomas and cysts are seen. No suspicious focal hepatic lesions. The portal vein is patent. The gallbladder is decompressed. The spleen, pancreas, adrenal glands, and kidneys have a normal appearance. There is no pathologically enlarged mesenteric or retroperitoneal adenopathy. There is wall thickening and edema of the distal stomach. The bowel loops are nondilated. The appendix is visualized in the right lower quadrant and has a normal appearance. There is no free fluid or free air. The osseous structures demonstrate no acute abnormalities. There is calcified aortic and iliac atherosclerotic plaque without aneurysm. Ureters and bladder have a normal appearance. There is no free air, loculated collection, or adenopathy in the pelvis. IMPRESSION: 1. Wall thickening and edema involving the distal stomach, suggestive of gastritis. No penetrating ulcer is seen. No free fluid or free air. 2. No acute abnormalities in the chest. No focal consolidation or pleural effusion. Assessment/Plan Assessment/Plan Assessment/Plan Epigastric abdominal pain- gastritis, possible cholecystitis N/V Diarrhea- resolved Hx cervical cancer- hysterectomy/oophrectomy; partial bladder removal/ureter removal Pain and nausea management NPO US this morning at 8 Monitor labs and vitals Clinical Quality Measures DVT/VTE Risk/Contraindication: Contraindications-Pharm: Other *list below* Other: Needs procedure BHASKAR WIGGINS DO 08/17/21 1113: History of Present Illness History of Present Illness Time Seen by Provider: 09:54 History of Present Illness Surgery asked to consult regarding N/V, Abdominal pain and gastric thickening seen on CT. HPI: when I saw pt this am she stated she is feeling better, but only with the anti-nausea meds and pain meds. She hasn't eaten since Sunday, because that is when everything started. She did state she started eating a probiotic yogurt; Sunday, Sunday and Sunday. She describes the pain as heartburn and "acid up into mouth" nothing really in RUQ. Denied any hematemesis Allergies and Home Medications Allergies Coded Allergies: No Known Drug Allergies (Unverified , 07/07/19) Patient Home Medication List Home Medication List Reviewed: Yes Alprazolam (Xanax) 0.25 Mg Tablet, 0.25 MG PO TID PRN for ANXIETY, (Reported) Entered as Reported by: ARGENTINA NIXON on 07/07/19 1401 Last Action: Held Bupropion HCl (Wellbutrin Xl) 150 Mg Tab.er.24h, 150 MG PO 1200 PRN for SMOKING CESSATION, (Reported) Entered as Reported by: TOMMY DOHERTY on 08/17/21 0940 Last Action: Reviewed Discontinued Medications Etodolac (Etodolac) 500 Mg Tablet, 500 MG PO PRN, (Reported) Discontinued Reason: No Longer Taking Entered as Reported by: ARGENTINA NIXON on 07/07/19 1404 Last Action: Discontinued Past Jkpqrah-Zeeilm-Pdurum Hx Patient Social History Smoking Status: Current Everyday Smoker (off and on for 40 years; 1/2 pack per day) Alcohol Use?: Yes (occasional (every few weeks have beer)) Surgeries History of Surgeries: Yes Surgeries: Bladder Surgery, Section, Hysterectomy, Oophorectomy, Orthopedic (R knee) Respiratory History of Respiratory Disorde: No Cardiovascular History of Cardiac Disorders: No Neurological History of Neurological Disord: No Genitourinary History of Genitourinary Disor: Yes (PART OF BLADDER/ureter REMOVED DURING CERVICAL CANCER SURGERY) Gastrointestinal History of Gastrointestinal Di: Yes (liver hemagiomas) Gastrointestinal Disorders: Gastroesophageal Reflux Musculoskeletal History of Musculoskeletal Dis: No HEENT History of HEENT Disorders: No Loss of Vision: Denies Hearing Impairment: Denies Cancer History of Cancer: Yes Cancer: Cervical Psychosocial History of Psychiatric Problem: Yes Behavioral Health Disorders: Anxiety, Depression Family Medical History Significant Family History: Cancer (grandma- brain), Diabetes (dad), Stroke (dad; brother), Other Conditions/Hx (Kidney stones dad) Review of Systems-General Constitutional: No chills; dizziness (yesterday; not today); No fever, No weight gain, No weight loss EENTM: blurred vision (yesterday; not today); No hearing loss Respiratory: No cough, No short of breath Cardiovascular: No chest pain, No Hx of Intervention, No palpitations Gastrointestinal: abdominal pain (epigastric), diarrhea (sunday morning); No hematemesis; nausea, vomiting (overnight; 4-5x total) Genitourinary: No dysuria, No frequency, No hematuria Musculoskeletal: back pain (where pain started), neck pain (pain radiates here), other (ribs hurt too) Skin: No lesions, No rash Psychiatric/Neurological: Anxiety, Depressed; Denies Headache, Denies Seizure Physical Exam-General Problems Physical Exam General Appearance: WD/WN, no apparent distress Eyes: Bilateral Eye PERRL, Bilateral Eye EOMI HEENT: pharynx normal; No scleral icterus (R), No scleral icterus (L), No photophobia Neck: non-tender, supple Respiratory: lungs clear, normal breath sounds, no respiratory distress, no accessory muscle use Cardiovascular: regular rate, rhythm, no murmur Peripheral Pulses: 2+ Radial Pulses (R), 2+ Radial Pulses (L) Gastrointestinal: soft; No guarding, No rebound; tenderness (epigastric), hernia (umbilical) Back: no CVA tenderness, no vertebral tenderness Extremities: normal range of motion, non-tender, no pedal edema, no calf tenderness 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 PROCEDURE: Ultrasound abdomen complete. TECHNIQUE: Multiple real-time grayscale images were obtained of the abdomen in various projections. The liver is normal in size 16.7 cm. Portal vein is patent and shows normal direction of flow circumscribed hyperechoic mass right lobe measures 2.6 cm suggestive of a hemangioma. A smaller lesion more medially in the right lobe is noted measuring 1.2 x 1.6 cm. This is hyperechoic as well and likely a smaller hemangioma. The gallbladder is without stones or sludge. No wall thickening or biliary duct dilatation is seen. Pancreas unremarkable. Spleen is normal size at 10 cm. Aorta is nonaneurysmal. IVC is patent. Kidneys are without calculi or hydronephrosis. There is no ascites. IMPRESSION: 1. Probable liver hemangiomas. 2. No evidence of cholelithiasis or acute cholecystitis. Dictated on workstation # [id number] Dict: 08/17/21917 Trans: 08/17/21921 CV [id number] Interpreted by: JIMMY ADKINS MD Assessment/Plan Assessment/Plan Assessment/Plan Epigastric abdominal pain- gastritis Contracted GB N/V Diarrhea- resolved Hx cervical cancer- hysterectomy/oophrectomy; partial bladder removal/ureter removal Pain and nausea management, make NPO (she was starting to drink liquids when I saw her). I reviewed the CT myself (today) and spoke with the ER doctor last night regarding this pt. I can see a very thickenend antrum and pyloric area. I talked to the pt regarding these findings and her symptoms. She was given a few choices; 1) try liquids today and monitor, if better could go home or may need EGD tomorrow 2) EGD today 3) EGD as an outpt. She is looking better, but she states that is only with the meds. She discussed it with her and they wanted to do EGD today and get some biopsies of the area. They were concerned about hiatal hernia as the cause of pain and I told them that I doubted this. I went over risks and complications of procedure with the pt; not limited to pain, bleeding, infection and even esophageal perforation. All questions answered to her satisfaction. Supervisory-Addendum Brief Verification & Attestation Participated in pt care: history, MDM, physical Personally performed: exam, history, MDM, supervision of care Care discussed with: Medical Student Procedures: n/a Verification and Attestation of Medical Student E/M Service A medical student performed and documented this service. I then reviewed and verified all information documented by the medical student and made modifications to such information, when appropriate. I personally performed a physical exam, medical decision making and then discussed any differences between the notes and made revisions as necessary to create one note. Bhaskar Wiggins , 08/17/21 , 11:20 LAVON NOVAK Aug 17, 2021 07:18 BHASKAR WIGGINS DO Aug 17, 2021 11:13
[2021-08-17] MEDS ORDERED: PANTOPRAZOLE 40 MG (PROTONIX) VIAL IV SCH (09:00)
--- NOTE | 2021-08-17 09:22 | Diagnostic Imaging Report ---
INDICATION: Abdominal pain. PROCEDURE: Ultrasound abdomen complete. TECHNIQUE: Multiple real-time grayscale images were obtained of the abdomen in various projections. The liver is normal in size 16.7 cm. Portal vein is patent and shows normal direction of flow circumscribed hyperechoic mass right lobe measures 2.6 cm suggestive of a hemangioma. A smaller lesion more medially in the right lobe is noted measuring 1.2 x 1.6 cm. This is hyperechoic as well and likely a smaller hemangioma. The gallbladder is without stones or sludge. No wall thickening or biliary duct dilatation is seen. Pancreas unremarkable. Spleen is normal size at 10 cm. Aorta is nonaneurysmal. IVC is patent. Kidneys are without calculi or hydronephrosis. There is no ascites. IMPRESSION: 1. Probable liver hemangiomas. 2. No evidence of cholelithiasis or acute cholecystitis. Dictated by: Dictated on workstation # [id number]
[2021-08-17] MEDS ORDERED: BUPR-42 PO (09:40)
[2021-08-17] MEDS: DOCUSATE SODIUM 100 MG (COLACE) CAP PO SCH (09:48)
[2021-08-17] MEDS: SENNOSIDES 8.6 MG (SENOKOT) TAB PO SCH (09:48)
--- NOTE | 2021-08-17 10:28 | History & Physical ---
AMANDO DREW MED STUDENT 08/17/21 1028: History of Present Illness History of Present Illness Reason for visit/HPI CC: Epigastric pain, nausea HPI: This is Miss Rachel, a clinic patient of Dr. Carrasco'bimal who presented to the ED for epigastric pain and uncontrolled nausea and vomiting. Pt started having mid-back pain Sunday night, and only ate one small meal for that day. When she woke up Sunday, the back pain had increased significantly and she also developed epigastric pain. This epigastric pain rated as 9/10 and radiated directly through her abdomen to the back and around her rib cage bilaterally. Pain also radiates to her R shoulder and neck. She was nauseous and had NBNB vomiting x5 times. She was in touch with Dr. Carrasco's clinic multiple times yesterday, the outpatient zofran she took had done nothing to help with the nausea or vomiting. She presented to the ED via POV with her . She was given fluids, IV zofran and mulitple imaging studies were obtained. EKG done reported as sinus rhythm. CT of the chest/abdomen/pelvis was remarkable for inflammation in the distal stomach and known hepatic lesions. Gallbladder. bowel, bladder and pancreas were unremarkable. She was admitted to the med/surg unit, made NPO and continued on IV zofran, fluids and pain medication. An abdominal ultrasound was conducted this morning (08/17/21), the final report is not available at this time. Surgery has been consulted. Date of Admission Aug 16, 2021 at 19:58 Date Seen by a Provider: Aug 17, 2021 Time Seen by a Provider: 09:20 I consulted on this patient on 08/17/21 10:20 Attending Physician Azul Carrasco DO Admitting Physician Azul Carrasco DO Consult Dr. Lo, general surgery Allergies and Home Medications Allergies Coded Allergies: No Known Drug Allergies (Unverified , 07/07/19) Patient Home Medication List Alprazolam (Xanax) 0.25 Mg Tablet, 0.25 MG PO TID PRN for ANXIETY, (Reported) Entered as Reported by: ARGENTINA NIXON on 07/07/19 6546 Last Action: Held Bupropion HCl (Wellbutrin Xl) 150 Mg Tab.er.24h, 150 MG PO 1200 PRN for SMOKING CESSATION, (Reported) Entered as Reported by: TOMMY DOHERTY on 08/17/21 0940 Last Action: Reviewed Ondansetron (Ondansetron Odt) 8 Mg Tab.rapdis, 8 MG PO Q6H PRN for NAUSEA/VOMITING Prescribed by: AZUL CARRASCO on 08/17/21 1520 Pantoprazole Sodium (Protonix) 40 Mg Tablet.dr, 40 MG PO BID Prescribed by: AZUL CARRASCO on 08/17/21 1520 Sucralfate (Sucralfate) 1 Gm Tablet, 1 GM PO ACHS Prescribed by: AZUL CARRASCO on 08/17/21 1520 Discontinued Medications Etodolac (Etodolac) 500 Mg Tablet, 500 MG PO PRN, (Reported) Discontinued Reason: No Longer Taking Entered as Reported by: ARGENTINA NIXON on 07/07/19 1405 Last Action: Discontinued Past Zhyjikh-Vvyaaf-Guiutd Hx Patient Social History Marrital Status: Tobacco Use?: Yes Tobacco type used: Cigarettes Smoking Status: Current Everyday Smoker (off and on for 40 years; 1/2 pack per day) Smokeless Tobacco Frequency: Never a User Use of E-Cig and/or Vaping dev: No Substance use?: No Alcohol Use?: Yes (occasional (every few weeks have beer)) Alcohol Frequency: Rarely Pt feels they are or have been: No Immunizations Up To Date First/Initial COVID19 Vaccinat: YES Second COVID19 Vaccination Yovani: YES Seasonal Allergies Seasonal Allergies: No Current Status status: Unable to obtain status: Unable to obtain Advance Directives: Unable to obtain Communicates: Verbally Primary Language: Kinyarwanda Preferred Spoken Language: Kinyarwanda Is interpretation needed?: No Implanted or Applied Medical D: None Past Medical History Surgeries: Bladder Surgery, Section, Hysterectomy, Oophorectomy, Orthopedic (R knee) 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 Sexually Transmitted Disease: No HIV/AIDS: No Chronic Constipation Loss of Vision: Denies Hearing Impairment: Denies Cervical Did You Recieve Any Treatments: Yes What Type of Treatment Did You: Radiation, Surgical Intervention RADICAL HYSTERECTOMY/BSO/PART OF BLADDER REMOVED Anxiety, Depression Blood Disorders: No Adverse Reaction/Blood Tranf: No (N/A) Family Medical History Cancer (grandma- brain), Diabetes (dad), Stroke (dad; brother), Other Conditions/Hx (Kidney stones dad) Review of Systems Constitutional: No chills, No dizziness, No fever, No malaise EENTM: No blurred vision, No double vision, No vision loss Respiratory: No cough, No dyspnea on exertion, No short of breath Cardiovascular: chest pain; No palpitations, No syncope Gastrointestinal: abdominal pain (Epigastric ); No constipation, No diarrhea, No hematemesis; heartburn (after vomiting ); No melena; nausea, vomiting (NBNB) Genitourinary: No decreased output, No dysuria, No frequency : No Musculoskeletal: back pain; No joint pain, No muscle pain; neck pain Skin: no symptoms reported Psychiatric/Neurological: No Symptoms Reported Physical Exam Vital Signs Vital Signs - First Documented 08/16/21 08/16/21 08/16/21 17:50 20:08 23:47 Temp 36.5 Pulse 100 Resp 18 B/P (MAP) 134/110 (118) Pulse Ox 97 O2 Delivery Room Air FiO2 21 Capillary Refill : Less Than 3 Seconds Height, Weight, BMI Height: '" Weight: lbs. oz. kg; 31.99 BMI Method: General Appearance: No Apparent Distress, WD/WN; No Anxious Eyes: Bilateral Eye Normal Inspection, Bilateral Eye PERRL, Bilateral Eye EOMI HEENT: PERRL/EOMI, Moist Mucous Membranes; No Scleral Icterus (L), No Scleral Icterus (R) Neck: Full Range of Motion, Normal Inspection, Supple; No Lymphadenopathy (L), No Lymphadenopathy (R); Tender Lateral (R) Respiratory: Lungs Clear, Normal Breath Sounds, No Accessory Muscle Use, No Respiratory Distress, Other (Chest tenderness with palpation along bilateral lower ribs ) Cardiovascular: Regular Rate, Rhythm, No Edema, No Murmur, Normal Peripheral Pulses Gastrointestinal: Normal Bowel Sounds, No Organomegaly, Soft, Tenderness (Epigastric) Back: Other (Tenderness with palpation at T10-12) Extremity: Normal Capillary Refill, No Pedal Edema Neurologic/Psychiatric: Alert, Oriented x3, kitchen 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 Lo Clinical Quality Measures DVT/VTE Risk/Contraindication: Contraindications-Pharm: Other *list below* Other: Needs procedure AZUL CARRASCO DO 08/18/21 0548: History of Present Illness History of Present Illness Reason for visit/HPI Chief complaint: Abdominal pain with nausea and vomiting History of present illness: This is a 56-year-old white female clinic patient of [facility] with history of current smoking with anxiety and uterine cancer remotely who presented to the ER with worsening abdominal pain with nausea and vomiting. IV fluids and antiemetics with pain medication provided. Will obtain EGD by Dr. Lo since ultrasound was normal. Allergies and Home Medications Allergies Coded Allergies: No Known Drug Allergies (Unverified , 07/07/19) Patient Home Medication List Home Medication List Reviewed: Yes Alprazolam (Xanax) 0.25 Mg Tablet, 0.25 MG PO TID PRN for ANXIETY, (Reported) Entered as Reported by: ARGENTINA NIXON on 07/07/19 1405 Last Action: Held Bupropion HCl (Wellbutrin Xl) 150 Mg Tab.er.24h, 150 MG PO 1200 PRN for SMOKING CESSATION, (Reported) Entered as Reported by: TOMMY DOHERTY on 08/17/21 0940 Last Action: Reviewed Ondansetron (Ondansetron Odt) 8 Mg Tab.rapdis, 8 MG PO Q6H PRN for NAUSEA/VOMITING Prescribed by: AZUL CARRASCO on 08/17/21 1520 Pantoprazole Sodium (Protonix) 40 Mg Tablet.dr, 40 MG PO BID Prescribed by: AZUL CARRASCO on 08/17/21 1520 Sucralfate (Sucralfate) 1 Gm Tablet, 1 GM PO ACHS Prescribed by: AZUL CARRASCO on 08/17/21 1520 Discontinued Medications Etodolac (Etodolac) 500 Mg Tablet, 500 MG PO PRN, (Reported) Discontinued Reason: No Longer Taking Entered as Reported by: ARGENTINA NIXON on 07/07/19 1405 Last Action: Discontinued Past Gtddjyv-Jpzgot-Leniaq Hx Patient Social History Marrital Status: Employed/Student: unemployed Smoking Status: Current Everyday Smoker Substance use?: No Alcohol Use?: No Current Status Implanted or Applied Medical D: None Past Medical History Headaches /Migraines Loss of Vision: Denies Hearing Impairment: Denies Uterine Did You Recieve Any Treatments: Yes What Type of Treatment Did You: Surgical Intervention Anxiety Review of Systems Constitutional: see HPI, weakness EENTM: no symptoms reported Respiratory: no symptoms reported Cardiovascular: no symptoms reported Gastrointestinal: abdominal pain (Epigastric ), loss of appetite, nausea, vomiting (NBNB) Musculoskeletal: back pain Skin: no symptoms reported Psychiatric/Neurological: No Symptoms Reported All Other Systems Reviewed Negative Unless Noted: Yes Physical Exam General Appearance: WD/WN, Anxious, Chronically ill Eyes: Bilateral Eye Normal Inspection, Bilateral Eye PERRL, Bilateral Eye EOMI HEENT: PERRL/EOMI, Normal ENT Inspection, Pharynx Normal Neck: Full Range of Motion, Normal Inspection, Non Tender, Supple, Carotid Bruit Respiratory: Chest Non Tender, Lungs Clear, Normal Breath Sounds, No Accessory Muscle Use, No Respiratory Distress Cardiovascular: Regular Rate, Rhythm, No Edema, No Gallop, No JVD, No Murmur, Normal Peripheral Pulses Gastrointestinal: Normal Bowel Sounds, No Organomegaly, No Pulsatile Mass, Soft, Tenderness (Epigastric) Back: Normal Inspection, No CVA Tenderness, No Vertebral Tenderness Extremity: Normal Capillary Refill, Normal Inspection, Normal Range of Motion, Non Tender, No Calf Tenderness, No Pedal Edema Neurologic/Psychiatric: Alert, Oriented x3, No Motor/Sensory Deficits, Normal Mood/Affect Skin: Normal Color, Warm/Dry Lymphatic: No Adenopathy Assessment/Plan Assessment and Plan Assessment: Acute abdominal pain Nausea vomiting Plan: IV fluids Antiemetics Problems: (1) Gastritis Status: Acute (2) Abdominal pain Status: Acute Admission Diagnosis Admission Status: Observation Supervisory-Addendum Brief Verification & Attestation Participated in pt care: history, MDM, physical Personally performed: exam, history, MDM, supervision of care Care discussed with: Medical Student Procedures: n/a Results interpretation: Verified all documentation Verification and Attestation of Medical Student E/M Service A medical student performed and documented this service in my presence. I reviewed and verified all information documented by the medical student and made modifications to such information, when appropriate. I personally performed the physical exam and medical decision making. Azul Carrasco, Aug 18, 2021,05:49 AMANDO DREW MED STUDENT Aug 17, 2021 10:28 AZUL CARRASCO DO Aug 18, 2021 05:48
[2021-08-17] MEDS ORDERED: buPROPion SR 150 MG (WELLBUTRIN SR) TAB PO SCH (12:00)
[2021-08-17] MEDS ORDERED: LACTATED RINGERS 1,000 ML IV ONE (12:09)
[2021-08-17] MEDS ORDERED: proPOfol 200 MG/20 ML (DIPRIVAN) VIAL IV ONE (12:59)
--- NOTE | 2021-08-17 14:01 | Anesthesia-General Post-Op ---
MAC Patient Condition Mental Status/LOC: Same as Preop Cardiovascular: Satisfactory Nausea/Vomiting: Absent Respiratory: Satisfactory Pain: Controlled Complications: Absent Post Op Complications Complications None Follow Up Care/Instructions Patient Instructions None needed. Anesthesiology Discharge Order Discharge Order Patient is doing well, no complaints, stable vital signs, no apparent adverse anesthesia problems. No complications reported per nursing. ALEKSANDR [place] CRNA Aug 17, 2021 14:01
[2021-08-17] MEDS ORDERED: ONDA8TAB13 PO (15:20)
[2021-08-17] MEDS ORDERED: PANT40TA2 PO (15:20)
[2021-08-17] MEDS ORDERED: SUCR1TAB PO (15:20)
--- NOTE | 2021-08-17 15:22 | Discharge Summary ---
Diagnosis/Chief Complaint Date of Admission Aug 16, 2021 at 19:58 Date of Discharge Discharge Date: Aug 17, 2021 Discharge Diagnosis Multiple stomach ulcers Discharge Summary Discharge Physical Examination Allergies: Coded Allergies: No Known Drug Allergies (Unverified , 07/07/19) Vitals & I&Os Vital Signs Date Time Temp Pulse Resp B/P (MAP) Pulse Ox O2 Delivery O2 Flow Rate FiO2 08/17/21 16:45 36.7 54 17 125/69 98 Room Air 08/16/21 23:47 21 General Appearance: Alert, Oriented X3, Cooperative Respiratory: Clear to Auscultation Cardiovascular: Regular Rate Hospital Course Was the Problem List Reviewed?: Yes Brief course after she was admitted for observation placed on IV fluids and IV antiemetics and pain medication. Ultrasound was normal. EGD performed Dr. Lo revealed multiple stomach ulcers so she was discharged improved condition on proton pump inhibitor twice daily and Carafate. Labs (last 24 hrs) Laboratory Tests 08/16/21 18:00: White Blood Count 10.8, Red Blood Count 4.66, Hemoglobin 15.0, Hematocrit 44, Mean Corpuscular Volume 95, Mean Corpuscular Hemoglobin 32, Mean Corpuscular Hemoglobin Concent 34, Red Cell Distribution Width 12.5, Platelet Count 350, Mean Platelet Volume 9.0, Immature Granulocyte % (Auto) 0, Neutrophils (%) (Auto) 81H, Lymphocytes (%) (Auto) 14, Monocytes (%) (Auto) 4, Eosinophils (%) (Auto) 0, Basophils (%) (Auto) 0, Neutrophils # (Auto) 8.8H, Lymphocytes # (Auto) 1.5, Monocytes # (Auto) 0.4, Eosinophils # (Auto) 0.0, Basophils # (Auto) 0.0, Immature Granulocyte # (Auto) 0.0, Sodium Level 144, Potassium Level 3.5L, Chloride Level 104, Carbon Dioxide Level 20L, Anion Gap 20H, Blood Urea Nitrogen 16, Creatinine 0.90, Estimat Glomerular Filtration Rate 76, BUN/Creatinine Ratio 18, Glucose Level 138H, Calcium Level 10.0, Corrected Calcium , Magnesium Level 1.9, Total Bilirubin 0.8, Aspartate Amino Transf (AST/SGOT) 15, Alanine Aminotransferase (ALT/SGPT) 19, Alkaline Phosphatase 88, Troponin I < 0.028, Total Protein 8.4H, Albumin 4.7H, Amylase Level 30, Lipase 15 08/16/21 18:13: Urine Color YELLOW, Urine Clarity CLEAR, Urine pH >=9.0, Urine Specific [place] 1.010L, Urine Protein 1+H, Urine Glucose (UA) NEGATIVE, Urine Ketones TRACEH, Urine Nitrite NEGATIVE, Urine Bilirubin NEGATIVE, Urine Urobilinogen 0.2, Urine Leukocyte Esterase NEGATIVE, Urine RBC (Auto) NEGATIVE, Urine RBC NONE, Urine WBC NONE, Urine Squamous Epithelial Cells 0-2, Urine Crystals PRESENTH, Urine Amorphous Sediment FEW LALY PHOSPHATEH, Urine Bacteria NEGATIVE, Urine Casts NONE, Urine Mucus NEGATIVE, Urine Culture Indicated NO 08/17/21 05:26: White Blood Count 7.6, Red Blood Count 3.81, Hemoglobin 12.3, Hematocrit 38, Mean Corpuscular Volume 98, Mean Corpuscular Hemoglobin 32, Mean Corpuscular Hemoglobin Concent 33, Red Cell Distribution Width 12.6, Platelet Count 256, Me an Platelet Volume 9.0, Immature Granulocyte % (Auto) 0, Neutrophils (%) (Auto) 52, Lymphocytes (%) (Auto) 38, Monocytes (%) (Auto) 8, Eosinophils (%) (Auto) 1, Basophils (%) (Auto) 1, Neutrophils # (Auto) 3.9, Lymphocytes # (Auto) 2.9, Monocytes # (Auto) 0.6, Eosinophils # (Auto) 0.1, Basophils # (Auto) 0.1, Immature Granulocyte # (Auto) 0.0, Sodium Level 143, Potassium Level 3.9, Chloride Level 108H, Carbon Dioxide Level 21, Anion Gap 14, Blood Urea Nitrogen 14, Creatinine 0.79, Estimat Glomerular Filtration Rate 89, BUN/Creatinine Ratio 18, Glucose Level 89, Calcium Level 8.8, Corrected Calcium 9.2, Total Bilirubin 0.7, Aspartate Amino Transf (AST/SGOT) 13, Alanine Aminotransferase (ALT/SGPT) 13, Alkaline Phosphatase 64, Total Protein 6.2L, Albumin 3.5 Pending Labs Laboratory Tests 08/16/21 18:00: White Blood Count 10.8, Red Blood Count 4.66, Hemoglobin 15.0, Hematocrit 44, Mean Corpuscular Volume 95, Mean Corpuscular Hemoglobin 32, Mean Corpuscular Hemoglobin Concent 34, Red Cell Distribution Width 12.5, Platelet Count 350, Mean Platelet Volume 9.0, Immature Granulocyte % (Auto) 0, Neutrophils (%) (Auto) 81, Lymphocytes (%) (Auto) 14, Monocytes (%) (Auto) 4, Eosinophils (%) (Auto) 0, Basophils (%) (Auto) 0, Neutrophils # (Auto) 8.8, Lymphocytes # (Auto) 1.5, Monocytes # (Auto) 0.4, Eosinophils # (Auto) 0.0, Basophils # (Auto) 0.0, Immature Granulocyte # (Auto) 0.0, Sodium Level 144, Potassium Level 3.5, Chloride Level 104, Carbon Dioxide Level 20, Anion Gap 20, Blood Urea Nitrogen 16, Creatinine 0.90, Estimat Glomerular Filtration Rate 76, BUN/Creatinine Ratio 18, Glucose Level 138, Calcium Level 10.0, Corrected Calcium , Magnesium Level 1.9, Total Bilirubin 0.8, Aspartate Amino Transf (AST/SGOT) 15, Alanine Aminotransferase (ALT/SGPT) 19, Alkaline Phosphatase 88, Troponin I < 0.028, Total Protein 8.4, Albumin 4.7, Amylase Level 30, Lipase 15 08/16/21 18:13: Urine Color YELLOW, Urine Clarity CLEAR, Urine pH >=9.0, Urine Specific [place] 1.010, Urine Protein 1+, Urine Glucose (UA) NEGATIVE, Urine Ketones TRACE, Urine Nitrite NEGATIVE, Urine Bilirubin NEGATIVE, Urine Urobilinogen 0.2, Urine Leukocyte Esterase NEGATIVE, Urine RBC (Auto) NEGATIVE, Urine RBC NONE, Urine WBC NONE, Urine Squamous Epithelial Cells 0-2, Urine Crystals PRESENT, Urine Amorphous Sediment FEW LALY PHOSPHATE, Urine Bacteria NEGATIVE, Urine Casts NONE, Urine Mucus NEGATIVE, Urine Culture Indicated NO 08/17/21 05:26: White Blood Count 7.6, Red Blood Count 3.81, Hemoglobin 12.3, Hematocrit 38, Mean Corpuscular Volume 98, Mean Corpuscular Hemoglobin 32, Mean Corpuscular Hemoglobin Concent 33, Red Cell Distribution Width 12.6, Platelet Count 256, Mean Platelet Volume 9.0, Immature Granulocyte % (Auto) 0, Neutrophils (%) (Auto) 52, Lymphocytes (%) (Auto) 38, Monocytes (%) (Auto) 8, Eosinophils (%) ( Auto) 1, Basophils (%) (Auto) 1, Neutrophils # (Auto) 3.9, Lymphocytes # (Auto) 2.9, Monocytes # (Auto) 0.6, Eosinophils # (Auto) 0.1, Basophils # (Auto) 0.1, Immature Granulocyte # (Auto) 0.0, Sodium Level 143, Potassium Level 3.9, Chloride Level 108, Carbon Dioxide Level 21, Anion Gap 14, Blood Urea Nitrogen 14, Creatinine 0.79, Estimat Glomerular Filtration Rate 89, BUN/Creatinine Ratio 18, Glucose Level 89, Calcium Level 8.8, Corrected Calcium 9.2, Total Bilirubin 0.7, Aspartate Amino Transf (AST/SGOT) 13, Alanine Aminotransferase (ALT/SGPT) 13, Alkaline Phosphatase 64, Total Protein 6.2, Albumin 3.5 Discharge Home Medications: Active Scripts Active Ondansetron Odt (Ondansetron) 8 Mg Tab.rapdis 8 Mg PO Q6H PRN Protonix (Pantoprazole Sodium) 40 Mg Tablet.dr 40 Mg PO BID take on empty stomach with water and don't eat or drink for 30 minutes Sucralfate 1 Gm Tablet 1 Gm PO ACHS Reported Wellbutrin Xl (Bupropion HCl) 150 Mg Tab.er.24h 150 Mg PO 1200 PRN Xanax (Alprazolam) 0.25 Mg Tablet 0.25 Mg PO TID PRN Instructions to patient/family Please see electronic discharge instructions given to patient. Clinical Quality Measures DVT/VTE Risk/Contraindication: Contraindications-Pharm: Other *list below* Other: Needs procedure CHRISTIANO CARRASCO DO Aug 17, 2021 15:22
--- NOTE | 2021-08-24 13:43 | Progress Note-Post Operative ---
Post-Operative Progess Note Surgeon (s)/Ironworker (s) Surgeon BHASKAR WIGGINS DO Ironworker: none Pre-Operative Diagnosis Gastritis Post-Operative Diagnosis Severe Gastritis Hiatal hernia Esophagitis Procedure & Operative Findings Date of Procedure 08/17/21 Procedure Performed/Findings EGD with bx PROCEDURE NOTE: After informed consent was obtained, the patient was brought to the endoscopy suite, placed in bed in left lateral decubitus position. She was administered IV sedation by the REGIONAL WILDLIFE AGENT who then monitored vitals the entire time, heart rate, blood pressure and pulse ox and the scope was inserted down the mouth through the esophagus into the stomach. On the way down, noted some mild esophagitis, took a picture, pushed into the stomach and noted severe gastritis and ulcers; especially closer to the antrum. Then pushed past the antrum into the duodenum; which looked good. Pulled back and did a couple of biopsies of the antral area. Next, retroflexed the scope and saw a very small sliding hiatal hernia, took a picture of this. Finally pulled the scope into the GE junction and took a picture of the esophagitis and then did a biopsy of the GE junction. Pushed the scope back into the stomach, suctioned all the air out of the stomach. At this point pulled the scope up the esophagus and out the mouth. The patient tolerated the procedure, and she recovered in endoscopy suite. Anesthesia Type IV Sedation by REGIONAL WILDLIFE AGENT Estimated Blood Loss Estimated blood loss (mL): scant Specimens/Packing Specimens Removed antral bx GE jxn bx BHASKAR WIGGINS DO Aug 24, 2021 13:43
== END 2021-08-17 15:45 | disposition home or self-care (01) ==
LOC: EDUNIT# 17:36 → ER 17:39 → 4TH 19:58
PROVIDERS: ADMIT Internal Medicine; ATTEND Internal Medicine
DX: K25.9 Gastric ulcer, unspecified as acute or chronic, without hemorrhage or perforation (principal); K29.70 Gastritis, unspecified, without bleeding; K20.90 Esophagitis, unspecified without bleeding; K44.9 Diaphragmatic hernia without obstruction or gangrene; K82.0 Obstruction of gallbladder; F17.210 Nicotine dependence, cigarettes, uncomplicated; Z86.16 Personal history of COVID-19; Z85.41 Personal history of malignant neoplasm of cervix uteri
CPT/HCPCS: 43239; 71260; 74177; 76700; 80053 ×2; 81000; 82150; 83690; 83735; 84484; 85025 ×2; 87081; 88305; 88342; 93005; 93041; 96361; 96374 ×2; 96375 ×2; 96376; 99284; G0378; 36415

== ENCOUNTER → 2022-02-21 | Outpatient (CLI) | payer OTHER ==
[~2022-02-21] MED LIST changes: +BUPR-42 PO; +ONDA8TAB13 PO; +PANT40TA2 PO; +SUCR1TAB PO
--- NOTE | 2022-02-21 14:48 | Diagnostic Imaging Report ---
Indication: Cough PA and lateral chest 957 a.m. Heart and mediastinal silhouette are normal in appearance. The lungs are clear. There is no pneumothorax or pleural fluid. IMPRESSION: Negative chest. Dictated by: Dictated on workstation # [id number]
== END ==
LOC: RAD 09:40
PROVIDERS: ATTEND Internal Medicine
DX: R05.9 Cough, unspecified (principal)
CPT/HCPCS: 71046

== ENCOUNTER → 2022-07-14 | Outpatient (CLI) | payer OTHER ==
--- NOTE | 2022-07-14 11:53 | Diagnostic Imaging Report ---
INDICATION: Routine screening. Comparison is made with prior mammogram from 07/11/2021 and 07/08/2020. 2-D and 3-D bilateral screening mammography was performed with CAD. Scattered fibroglandular densities are identified bilaterally. Biopsy marker clip in the outer aspect of the left breast is again noted. There are benign calcifications in the right breast. Benign nodules left breast and outer right breast appears stable. No spiculated mass or malignant-appearing microcalcifications are seen. Axillae are unremarkable. IMPRESSION: No mammographic features suspicious for malignancy are identified. ACR BI-RADS Category 2: Benign findings. Result letter will be mailed to the patient. Note: At least 10% of breast cancer is not imaged by mammography. BI-RADS Category 2 Dictated by: Dictated on workstation # [id number]
== END ==
LOC: RAD 08:05
PROVIDERS: ATTEND Internal Medicine
DX: Z12.31 Encounter for screening mammogram for malignant neoplasm of breast (principal)
CPT/HCPCS: 77063; 77067